=== PATIENT | female | born 1980 | race Caucasian/White ===

== ENCOUNTER → 2016-12-22 | Outpatient (CLI) | payer BC ==
[~2016-12-22] MED LIST: MULT-506 PO; PRLSR20 PO
[2016-12-22 15:09] LABS: URINE APPEARANCE CLEAR (CLEAR); URINE BILIRUBIN NEG (NEG); URINE COLOR YELLOW; URINE NITRITE NEG (NEG); URINE PH 7.5 (4.5-7.5); URINE SPECIFIC GRAVITY 1.011 (1.000-1.030); UROBILINOGEN NEG (NEG)
[2016-12-22 15:18] LABS: MANUAL MICROSCOPIC REQUIRED? NO; REVIEW REQ? NO
== END | disposition home or self-care (01) ==
LOC: C.LABSPEC 13:57
PROVIDERS: ATTEND Obstetrics & Gynecology
DX: O09.523 Supervision of elderly multigravida, third trimester (principal)

== ENCOUNTER → 2017-01-05 | Outpatient (CLI) | payer BC ==
[~2017-01-05] MED LIST changes: +MTR600X PO; +OXYC-57 PO
[2017-01-05 12:21] LABS: BASO % 0.1 %; BASO ABS # 0.01 K/uL (0-0.2); COMPLETE YES; HEMATOCRIT 37.6 % (37-47); IG% 0.3 %; LYMPH % 29.2 %; MEAN CELL VOLUME 83.7 fL (80-100); MEAN CORPUSCULAR HEMOGLOBIN 29.2 pg (25-34); MEAN CORPUSCULAR HGB CONC 34.8 g/dl (32-36); MEAN PLATELET VOLUME 9.5 fL (7.4-10.4); MONO % 5.3 %; NEUT % 63.1 %; PLATELET COUNT 258 K/uL (130-400); RED BLOOD COUNT 4.49 M/uL (4.2-5.4); WHITE BLOOD COUNT 7.87 K/uL (4.8-10.8)
[2017-01-07 13:22] LABS: CHLAMYDIA TRACH RNA*** NOT DETECTED (NOT DETECTED); GC (NEIS GONORRHOEAE)RNA** NOT DETECTED (NOT DETECTED)
== END | disposition home or self-care (01) ==
LOC: C.LAB1850 10:22
PROVIDERS: ATTEND Obstetrics & Gynecology
DX: O09.521 Supervision of elderly multigravida, first trimester (principal)

== ENCOUNTER → 2017-02-03 | Outpatient (CLI) | payer BC | END | disposition home or self-care (01) | LOC: C.LABPVFM 15:10 | PROVIDERS: ATTEND Family Medicine | DX: J02.9 Acute pharyngitis, unspecified (principal) ==

== ENCOUNTER → 2017-02-09 | Outpatient (CLI) | payer BC ==
[2017-02-09 11:30] LABS: GTGD 50 Grams
== END | disposition home or self-care (01) ==
LOC: C.LAB1850 09:09
PROVIDERS: ATTEND Obstetrics & Gynecology
DX: O09.522 Supervision of elderly multigravida, second trimester (principal)

== ENCOUNTER → 2017-02-17 | Outpatient (CLI) | payer BC | END | disposition home or self-care (01) | LOC: C.LAB1850 08:29 | PROVIDERS: ATTEND Obstetrics & Gynecology | DX: O28.9 Unspecified abnormal findings on antenatal screening of mother (principal) ==

== ENCOUNTER → 2017-04-06 | Outpatient (CLI) | payer BC ==
[~2017-04-06] MED LIST changes: -MTR600X PO; -OXYC-57 PO
== END | disposition home or self-care (01) ==
LOC: C.LABSPEC 17:49
PROVIDERS: ATTEND Obstetrics & Gynecology
DX: N76.0 Acute vaginitis (principal)

== ENCOUNTER → 2017-04-20 | Outpatient (CLI) | payer BC ==
[2017-04-20 13:06] LABS: BLOOD UREA NITROGEN 5 mg/dl (7-18); BUN/CREATININE RATIO 8.1 (10-20); CALCIUM 8.6 mg/dl (8.5-10.1); CARBON DIOXIDE 27 mmol/L (21-32); CHLORIDE 105 mmol/L (98-107); CHOLESTEROL 157 mg/dl (0-200); CREATININE 0.57 mg/dl (0.60-1.20); GLUCOSE 95 mg/dl (70-99); SODIUM 139 mmol/L (136-145); TRIGLYCERIDES 284 mg/dl (0-150); VERY LOW DENSITY LIPOPROT CALC 57 mg/dl
[2017-04-20 13:10] LABS: HDL CHOLESTEROL 52 mg/dl; LDL CHOLESTEROL CALCULATED 48 mg/dl
== END | disposition home or self-care (01) ==
LOC: C.LABPVFM 09:48
PROVIDERS: ATTEND Nurse Practitioner Family
DX: Z00.00 Encounter for general adult medical examination without abnormal findings (principal)

== ENCOUNTER → 2017-05-05 | Outpatient (CLI) | payer BC ==
[2017-05-05 14:21] LABS: URINE APPEARANCE CLEAR (CLEAR); URINE BILIRUBIN NEG (NEG); URINE COLOR YELLOW; URINE EPITHELIAL CELL AUTO >30 /lpf (0-5); URINE NITRITE NEG (NEG); URINE SPECIFIC GRAVITY 1.013 (1.000-1.030); UROBILINOGEN NEG (NEG)
[2017-05-05 14:30] LABS: MANUAL MICROSCOPIC REQUIRED? NO; REVIEW REQ? NO
== END | disposition home or self-care (01) ==
LOC: C.LABSPEC 11:38
PROVIDERS: ATTEND Obstetrics & Gynecology
DX: O09.523 Supervision of elderly multigravida, third trimester (principal); Z3A.00 Weeks of gestation of pregnancy not specified

== ENCOUNTER → 2017-05-11 | Outpatient (CLI) | payer BC ==
[2017-05-11 12:38] LABS: HEMATOCRIT 36.2 % (37-47)
== END | disposition home or self-care (01) ==
LOC: C.LABPVFM 08:35
PROVIDERS: ATTEND Obstetrics & Gynecology
DX: O09.523 Supervision of elderly multigravida, third trimester (principal); Z3A.00 Weeks of gestation of pregnancy not specified

== ENCOUNTER → 2017-06-28 | Outpatient (CLI) | payer BC | END | disposition home or self-care (01) | LOC: C.LABSPEC 17:21 | PROVIDERS: ATTEND Obstetrics & Gynecology | DX: O09.523 Supervision of elderly multigravida, third trimester (principal) ==

== ENCOUNTER → 2017-09-02 | Outpatient (CLI) | payer BC, OTHER ==
[~2017-09-02] MED LIST changes: +MTR600X PO; +OXYC-57 PO
== END | disposition home or self-care (01) ==
LOC: C.LABPVFM 09:26
PROVIDERS: ATTEND Family Medicine
DX: J02.9 Acute pharyngitis, unspecified (principal)

== ENCOUNTER → 2017-10-27 | Outpatient (CLI) | payer BC, OTHER ==
--- NOTE | 2017-10-27 18:45 | DIAGNOSTIC IMAGING REPORT ---
C-SPINE ROUTINE 4 OR 5 VIEWS CLINICAL HISTORY: Neck pain. COMPARISON STUDY: No previous studies for comparison. FINDINGS: There is straightening of the normal cervical lordosis. No fracture or suspicious lesion is identified. Disc spaces are preserved. Facet joints appear intact. IMPRESSION: Unremarkable cervical spine radiographs. Electronically signed by: Freddy Foley M.D. 10/27/2017 6:44 PM Dictated Date/Time: 10/27/2017 6:43 PM
== END | disposition home or self-care (01) ==
LOC: C.RADPV 15:58
PROVIDERS: ATTEND Family Medicine
DX: M54.2 Cervicalgia (principal)

== ENCOUNTER 2018-05-12 09:38 | Emergency (ER) | payer BC, OTHER ==
[~2018-05-12] VITALS: Ht 160 cm; Wt 108.0 kg
[2018-05-12 09:39] VITALS: TEMP 36.8; Ht 160 cm; Wt 108.0 kg
[2018-05-12] MEDS ORDERED: OMEP40CA41 PO (09:54)
[2018-05-12] MEDS ORDERED: IBUPROFEN 600 MG TAB PO STA (09:56)
[2018-05-12] MEDS ORDERED: CLINDAMYCIN HCL 150 MG CAP PO ONE (10:00)
[2018-05-12] MEDS ORDERED: LIDOCAINE/EPINEPHRINE 1% 20 ML VIAL INFIL ONE (10:00)
--- NOTE | 2018-05-12 10:13 | EMERGENCY ROOM VISIT NOTE ---
History Report prepared by Herb: Erasmo Antonio Under the Supervision of: Dr. Grey Santos M.D. First contact with patient: 09:51 Chief Complaint: INFECTION Stated Complaint: ABCESS UNDER ARM History of Present Illness The patient is a 38 year old female who presents to the Emergency Room with complaints of worsening pain under her right armpit that began 3 days ago. The patient states that 3 days ago she felt pain like an "ingrown hair" or "big pimple" under her right arm. She asked her to try to "extract" whatever was in it, but he going not express a hair. The patient notes that since this time the pain has worsened and the bump has grown. She notes that now it is "very large." She is allergic to Cephalexin and Amoxicillin. Source of History: patient Onset: 3 days ago Position: arm (right) Symptom Intensity: "very large" Quality: other (ingrown hair) Timing: worsening Review of Systems See HPI for pertinent positives & negatives. A total of 10 systems reviewed and were otherwise negative. Past Medical & Surgical Medical Problems: (1) Breech presentation (2) labor (3) Sterilization (4) Supervision of elderly multigravida in third trimester (5) Unstable lie, antepartum Social History Smoking Status: Never Smoker Drug Use: none Marital Status: Housing Status: lives with family, lives with significant other Current/Historical Medications Scheduled Clindamycin Hcl (Cleocin), 300 MG PO Q6 Omeprazole (Prilosec), 40 MG PO DAILY Allergies Coded Allergies: Amoxicillin (Verified Allergy, Severe, HIVES, 05/12/18) Cephalosporins (Verified Allergy, Severe, DIARRHEA, 05/12/18) Physical Exam Vital Signs Date Time Temp Pulse Resp B/P (MAP) Pulse Ox O2 Delivery O2 Flow Rate FiO2 05/12/18 10:52 101 18 116/64 96 05/12/18 09:39 36.8 107 17 115/72 97 Room Air Physical Exam GENERAL: Awake, alert, well-appearing, in no acute distress HENT: Normocephalic, atraumatic. Oropharynx unremarkable. EYES: Normal conjunctiva. Sclera non-icteric. NECK: Supple. No nuchal rigidity. FROM. No JVD. RESPIRATORY: Clear to auscultation. CARDIAC: Regular rate, normal rhythm. Extremities warm and well perfused. Pulses equal. ABDOMEN: Soft, non-distended. No tenderness to palpation. No rebound or guarding. No masses. RECTAL: Deferred. MUSCULOSKELETAL: Chest examination reveals no tenderness. The back is symmetrical on inspection without obvious abnormality. There is no CVA tenderness to palpation. No joint edema. LOWER EXTREMITIES: Calves are equal size bilaterally and non-tender. No edema. No discoloration. NEURO: Normal sensorium. No sensory or motor deficits noted. SKIN: There is a fluctuant area present in the right axilla, 3x3 inches in size , central pimple present. Medical Decision & Procedures Laboratory Results Date/Time Source Procedure Growth Status 05/12/18 10:15 Incision Site Trunk/Torso Gram Stain - Final Complete 05/12/18 10:15 Wound Culture - Final Staph. Aureus Mrsa Complete Medications Administered Medications (Trade) Dose Ordered Sig/Kristie Route Start Time Stop Time Status Last Admin Dose Admin Clindamycin HCl (Cleocin Cap) 300 mg ONE ONCE PO 05/12/18 10:00 05/12/18 10:01 DC 05/12/18 10:05 300 MG Ibuprofen (Motrin Tab) 600 mg NOW STAT PO 05/12/18 09:56 05/12/18 09:59 DC 05/12/18 10:05 600 MG Lidocaine/ Epinephrine (Xylocaine/Epine 1% Inj) 20 ml ONE ONCE INFIL 05/12/18 10:00 05/12/18 10:01 DC 05/12/18 10:05 20 ML Procedure Incision & Drainage Indication: Abscess. Location: right axilla Verbal consent was obtained after the risks and benefits were explained, including but not limited to bleeding, scarring, infection, pain, and bone/joint /nerve damage. At this time, the risks of the procedure are less than the risks of NOT performing the procedure. A time out was taken and the correct patient and site identified. The skin was prepped with betadine and a sterile field set. The wound was anesthetized with 6 ml of 1% lidocaine without epinephrine. The abscess cavity was entered with a number 11 blade and bloody material expressed. The wound was explored for foreign bodies and none found. Debridement was not performed. A sterile dressing was applied. Detailed wound care instructions and signs and symptoms of worsening infection reviewed with the patient. No complications and the patient tolerated the procedure well. ED Course 957: Past medical records reviewed. The patient was evaluated in room B9. A complete history and physical examination was performed. 1054: Upon reexamination the patient is resting in bed. I discussed results and treatment plan with the patient. She verbalizes agreement and understanding. The patient is ready for discharge Medical Decision Prior records reviewed and summarized as above. Triage Nursing notes reviewed. Differential diagnosis: Etiologies such as cellulitis, abscess, MRSA infection, DVT, necrotizing fasciitis, dermatitis, drug eruption, as well as others were entertained. This is a 38-year-old female who presents emergency department complaining of abscess. This was drained as above. I will place the patient on clindamycin as she is allergic to amoxicillin and cephalosporins pending culture results. Upon receiving culture results I noted that the patient is growing out a staph aureus that is resistant to clindamycin. attempted to reach the patient 2 yesterday without results. Medication Reconcilliation Current Medication List: was personally reviewed by me Blood Pressure Screening Patient's blood pressure: Normal blood pressure Impression Primary Impression: Abscess Scribe Attestation The scribe's documentation has been prepared under my direction and personally reviewed by me in its entirety. I confirm that the note above accurately reflects all work, treatment, procedures, and medical decision making performed by me. Departure Information Dispostion Home / Self-Care Prescriptions Clindamycin Hcl (CLEOCIN) 150 Mg Cap 300 MG PO Q6 for 10 Days, #80 CAP Prov: Grey Santos MD 05/12/18 Referrals Tanisha Smiley (PCP) Forms HOME CARE DOCUMENTATION FORM, IMPORTANT VISIT INFORMATION, WORK / SCHOOL INSTRUCTIONS Patient Instructions My [facility] Additional Instructions Take 600 mg Ibuprofen every 6 hours Culture results are usually available in approx 48 hours You have been examined and treated today on an emergency basis only. This is not a substitute for, or an effort to provide, complete comprehensive medical care. It is impossible to recognize and treat all injuries or illnesses in a single emergency department visit. It is therefore important that you follow up closely with Dr Smiley. Call as soon as possible for an appointment. Thank you for your time and consideration. I look forward to speaking with you again soon. Please don't hesitate to call us if you have any questions.
[2018-05-12] MEDS ORDERED: CLIN150C PO (10:25)
[2018-05-12 10:52] VITALS: BP 116/64; PULSE 101; O2SAT 96
--- NOTE | 2018-05-15 15:00 | Pharmacy Progress Note ---
ED Pharmacist Culture FollowUp Date of Service: May 15, 2018. Abscess cx from R axilla is growing MRSA resistant to clindamycin Dr Santos reviewed results. Pt is to stop clindamycin and take Bactrim DS 1 PO BID x 10 days. Attempted to contact pt w/ ph # provided: [phone]. There was not answer but I did leave a message requesting a call back.
== END 2018-05-12 10:54 | disposition home or self-care (01) ==
LOC: C.EDB 09:38
DX: L02.411 Cutaneous abscess of right axilla (principal); Z79.899 Other long term (current) drug therapy; Z88.1 Allergy status to other antibiotic agents